=== PATIENT | male | born 1950 | race Caucasian/White ===

== ENCOUNTER → 2021-07-24 | Outpatient (CLI) | payer SELFPAY | END | disposition home or self-care (01) | LOC: LAB SHORT 11:12 | DX: D48.5 Neoplasm of uncertain behavior of skin (principal) | CPT/HCPCS: 88305 ==

== ENCOUNTER 2022-04-17 06:54 | Day surgery (SDC) | payer OTHER ==
[~2022-04-17] VITALS: Ht 182.9 cm; Wt 83.0 kg
[2022-04-17] MEDS ORDERED: EUTHYROX50 MCG PO (07:24)
[2022-04-17] MEDS ORDERED: EZET10 PO (07:24)
[2022-04-17] MEDS ORDERED: ASPI81CH PO (07:24)
[2022-04-17] MEDS ORDERED: METF500C PO (07:25)
[2022-04-17] MEDS ORDERED: METO25ER PO (07:25)
[2022-04-17] MEDS ORDERED: Lisinopril2.5 MG PO (07:25)
[2022-04-17] MEDS ORDERED: NIAC500 PO (07:26)
[2022-04-17] MEDS ORDERED: ROSU5 PO (07:26)
--- NOTE | 2022-04-17 12:52 | NUR ---
ATTEMPTED TO RELEASE AIR FROM [facility], PT BLED. AIR REPLACED
--- NOTE | 2022-04-17 18:26 | NUR ---
PT ARRIVED IN THE [facility] FROM [facility] PT IS POST ANGIO HAD 2 STENTS PLACED ON THE LAD AND OM, RIGHT RADIAL SITE WITH CLEAR DRESSING INTACT, NO HEMATOMA OR BLEEDING NOTED, FULLY RECOVERED SPLINT BOARD IN PLACE. PT ALERT AND ORIENTED AT BASELINE, VITALS HRR SR 60'S, BP SYSTOLIC 140'S-150'S, SATS ABOVE 95% ON RA, AFEBRILE. PT DENIES ANY CHEST PAIN OR PRESSURE AT THIS TIME. PT TO POSSIBLY DISCHARGE IN AM IF NO ISSUES. DIET RESUMED TOLERATING FOOD AND FLUID PO WELL. SBA FOR TRANSFERS CALLS APPROPRIATELY, AT BEDSIDE, NO OTHER ISSUES AT THIS TIME CALL LIGHTS IN REACH WILL REPORT TO ONCOMING SHIFT
--- NOTE | 2022-04-18 06:35 | NUR ---
NOC SHIFT SUMMARY PT SLEPT WELL OVERNIGHT, ORIENTED X4, VSS PER PT TREND. SR/SB ON TELEMETRY. R RADIAL CATH SITE UNCHANGED FROM INTIIAL ASSESSMENT (SMALL SS DRAINAGE, NO HEMATOMA, SWELLING, OR PAIN). UAL. ON RA. WILL CONTINUE TO MONITOR AND PASS ON TO DAY RN.
[2022-04-18 08:18] LABS: Bun/Creatinine Ratio 15.4 (12.0-20.0); Calcium, Blood 9.4 mg/dL (8.5-10.1); Creatinine, Blood 0.78 mg/dL (0.60-1.20); Potassium, Blood 4.1 mmol/L (3.5-5.5)
[2022-04-18] MEDS ORDERED: CLOP75 PO (11:37)
--- NOTE | 2022-04-18 12:09 | NUR ---
DISCHARGE NOTE NO ACUTE EVENTS THIS SHIFT. PT ALERT AND AMBULATES INDEPENDENTLY IN ROOM. VSS, NO SIGNS OF ACUTE DISTRESS. PT AND PT'S SPOUSE PROVIDED DISCHARGE INFO REGARDING FOLLOW UP PLANS, REASONS TO RETURN TO THE HOSPITAL, POST-ANGIO RADIAL SITE CARE AND RESTRICTIONS, AND MEDICATION INFORMATION. NO DISCHARGE/HEMATOMA AT R. RADIAL SITE. ARMBOARD IN PLACE. NO SIGNS OF ACUTE DISTRESS. PT TO LEAVE VIA PRIVATE VEHICLE WITH SPOUSE DRIVING.
== END 2022-04-18 12:15 | disposition home or self-care (01) ==
LOC: MHTC 06:54 → PCU 15:10 → MHTC 04-18 12:15
PROVIDERS: Internal Medicine Interventional Cardiology
DX: I25.10 Atherosclerotic heart disease of native coronary artery without angina pectoris (principal); E03.9 Hypothyroidism, unspecified; E11.9 Type 2 diabetes mellitus without complications; Z88.0 Allergy status to penicillin; Z79.899 Other long term (current) drug therapy
CPT/HCPCS: 36415; 76937; 80048; 82565; 82947; 85347; 93454; 99152; 99153; A9270; C1725; C1761; C1769; C1874; C1887; C1894; C9600; C9601; C9602; J1644; J2250; J3010; J7030; J7040; Q9967